=== PATIENT | female | born 1985 | race Caucasian/White ===

== ENCOUNTER 2017-04-16 17:15 | Emergency (ER) | payer OTHER ==
[2017-04-16 17:20] VITALS: RESP 18
[2017-04-16] MEDS ORDERED: ONDANSETRON 4 MG/2 ML VIAL IVP STA (17:55)
[2017-04-16] MEDS ORDERED: SODIUM CHLORIDE 0.9% 1,000 ML IV STA (17:55)
--- NOTE | 2017-04-16 18:01 | ED ---
Nausea/Vomiting/Diarrhea HPI - General Chief complaint: Nausea/Vomiting/Diarrhea Stated complaint: Vomiting Time Seen by Provider: 04/16/17 17:50 Source: patient Mode of arrival: ambulatory Limitations: no limitations - History of Present Illness Initial comments: 31-year-old female patient presents to emergency department today with complaints of vomiting since around 0300 this morning. She states that she has had approximately 8 episodes since this began. She states that whenever she tries to take in any fluids she immediately vomits them back up. She states that she had a fever as well this morning of 102.5. States that she was able to take and keep down some ibuprofen which did break the fever. She denies any abdominal pain, constipation, or diarrhea. States that her last bowel movement was yesterday and it was normal for her. She states that she does have a friend with similar symptoms. Patient denies any shortness breath, chest pain, abdominal pain, nausea, vomiting, diarrhea, constipation, hematemesis, hematochezia, melena, back pain, numbness, tingling, dizziness, weakness, hematuria, dysuria, urinary urgency, urinary frequency, headache, visual changes , or any other complaints. She denies any chance of or any significant past medical history. - Related Data Home Medications Medication Instructions Recorded Confirmed Ibuprofen [Motrin] 200 mg PO Q6HR PRN 04/16/17 04/16/17 Previous Rx's Medication Instructions Recorded Ondansetron [Zofran ODT] 4 mg PO Q8HR #10 tab 04/16/17 Allergies Allergy/AdvReac Type Severity Reaction Status Date / Time No Known Allergies Allergy Verified 04/16/17 18:14 Review of Systems ROS Statement: Those systems with pertinent positive or pertinent negative responses have been documented in the HPI. ROS Other: All systems not noted in ROS Statement are negative. Past Medical History Past Medical History: No Reported History Additional Past Medical History / Comment(s): OCD History of Any Multi-Drug Resistant Organisms: None Reported Past Surgical History: Section, Ear Surgery Past Psychological History: No Psychological Hx Reported Smoking Status: Current every day smoker Past Alcohol Use History: None Reported Past Drug Use History: None Reported General Exam Limitations: no limitations General appearance: alert, in no apparent distress, other (This is a well- developed, well-nourished adult female in no acute distress. Vital signs upon presentation were temperature 97.6F, pulse 101, respirations 18, blood pressure 111/65, pulse ox 100.) ENT exam: Present: normal exam, normal oropharynx, mucous membranes moist Respiratory exam: Present: normal lung sounds bilaterally. Absent: respiratory distress, wheezes, rales, rhonchi, stridor Cardiovascular Exam: Present: regular rate, normal rhythm, normal heart sounds. Absent: systolic murmur, diastolic murmur, rubs, gallop, clicks GI/Abdominal exam: Present: soft, normal bowel sounds. Absent: distended, tenderness, guarding, rebound, rigid Neurological exam: Present: alert, oriented X3, CN II-XII intact Psychiatric exam: Present: normal affect, normal mood Skin exam: Present: warm, dry, intact, normal color. Absent: rash Course Vital Signs 04/16/17 04/16/17 17:17 19:43 Temperature 97.6 F 98.9 F Pulse Rate 101 H 71 Respiratory 18 18 Rate Blood Pressure 111/65 102/58 O2 Sat by Pulse 100 100 Oximetry Medical Decision Making - Medical Decision Making 31-year-old female patient presented for acute nausea and vomiting. Labs were reviewed and were unremarkable. Physical exam was also unremarkable. Patient did receive nausea but indication and fluids here in the department and is feeling much better. Patient has tolerated ice chips. We will give a prescription for Zofran. She is instructed to start with a clear liquid diet and advance as tolerated. She will be discharged home with instructions to follow-up with her primary care physician for recheck in 1-2 days. She is instructed to return here immediately for any new, worsening, or concerning symptoms. Patient verbalizes understanding and agrees with this plan. - Lab Data Result diagrams: 04/16/17 18:20 04/16/17 18:20 Lab Results 04/16/17 04/16/17 04/16/17 Range/Units 18:20 18:20 18:49 WBC 7.8 (3.8-10.6) k/uL RBC 4.43 (3.80-5.40) m/uL Hgb 13.3 (11.4-16.0) gm/dL Hct 40.6 (34.0-46.0) % MCV 91.7 (80.0-100.0) fL MCH 30.0 (25.0-35.0) pg MCHC 32.8 (31.0-37.0) g/dL RDW 13.3 (11.5-15.5) % Plt Count 285 (150-450) k/uL Neutrophils % 69 % Lymphocytes % 19 % Monocytes % 5 % Eosinophils % 5 % Basophils % 1 % Neutrophils # 5.3 (1.3-7.7) k/uL Lymphocytes # 1.5 (1.0-4.8) k/uL Monocytes # 0.4 (0-1.0) k/uL Eosinophils # 0.4 (0-0.7) k/uL Basophils # 0.1 (0-0.2) k/uL Sodium 142 (137-145) mmol/L Potassium 3.7 (3.5-5.1) mmol/L Chloride 110 H (98-107) mmol/L Carbon Dioxide 21 L (22-30) mmol/L Anion Gap 11 mmol/L BUN 9 (7-17) mg/dL Creatinine 0.59 (0.52-1.04) mg/dL Est GFR (MDRD) Af Amer >60 (>60 ml/min/1.73 sqM) Est GFR (MDRD) Non-Af >60 (>60 ml/min/1.73 sqM) Glucose 81 (74-99) mg/dL Calcium 9.3 (8.4-10.2) mg/dL Total Bilirubin 0.3 (0.2-1.3) mg/dL AST 19 (14-36) U/L ALT 27 (9-52) U/L Alkaline Phosphatase 56 (38-126) U/L Total Protein 6.9 (6.3-8.2) g/dL Albumin 4.1 (3.5-5.0) g/dL Amylase 57 (30-110) U/L Lipase 114 (23-300) U/L Urine Color Yellow Urine Appearance Cloudy H (Clear) Urine pH 7.5 (5.0-8.0) Ur Specific Walters 1.009 (1.001-1.035) Urine Protein Negative (Negative) Urine Glucose (UA) Negative (Negative) Urine Ketones Negative (Negative) Urine Blood Moderate H (Negative) Urine Nitrite Negative (Negative) Urine Bilirubin Negative (Negative) Urine Urobilinogen <2.0 (<2.0) mg/dL Ur Leukocyte Esterase Negative (Negative) Urine RBC 2 (0-5) /hpf Urine WBC 1 (0-5) /hpf Ur Squamous Epith Cells 5 H (0-4) /hpf Urine Mucus Rare H (None) /hpf Urine HCG, Qual (Not Detectd) 04/16/17 Range/Units 18:49 WBC (3.8-10.6) k/uL RBC (3.80-5.40) m/uL Hgb (11.4-16.0) gm/dL Hct (34.0-46.0) % MCV (80.0-100.0) fL MCH (25.0-35.0) pg MCHC (31.0-37.0) g/dL RDW (11.5-15.5) % Plt Count (150-450) k/uL Neutrophils % % Lymphocytes % % Monocytes % % Eosinophils % % Basophils % % Neutrophils # (1.3-7.7) k/uL Lymphocytes # (1.0-4.8) k/uL Monocytes # (0-1.0) k/uL Eosinophils # (0-0.7) k/uL Basophils # (0-0.2) k/uL Sodium (137-145) mmol/L Potassium (3.5-5.1) mmol/L Chloride (98-107) mmol/L Carbon Dioxide (22-30) mmol/L Anion Gap mmol/L BUN (7-17) mg/dL Creatinine (0.52-1.04) mg/dL Est GFR (MDRD) Af Amer (>60 ml/min/1.73 sqM) Est GFR (MDRD) Non-Af (>60 ml/min/1.73 sqM) Glucose (74-99) mg/dL Calcium (8.4-10.2) mg/dL Total Bilirubin (0.2-1.3) mg/dL AST (14-36) U/L ALT (9-52) U/L Alkaline Phosphatase (38-126) U/L Total Protein (6.3-8.2) g/dL Albumin (3.5-5.0) g/dL Amylase (30-110) U/L Lipase (23-300) U/L Urine Color Urine Appearance (Clear) Urine pH (5.0-8.0) Ur Specific Walters (1.001-1.035) Urine Protein (Negative) Urine Glucose (UA) (Negative) Urine Ketones (Negative) Urine Blood (Negative) Urine Nitrite (Negative) Urine Bilirubin (Negative) Urine Urobilinogen (<2.0) mg/dL Ur Leukocyte Esterase (Negative) Urine RBC (0-5) /hpf Urine WBC (0-5) /hpf Ur Squamous Epith Cells (0-4) /hpf Urine Mucus (None) /hpf Urine HCG, Qual Not Detected (Not Detectd) Disposition Clinical Impression: Gastroenteritis Disposition: HOME SELF-CARE Condition: Good Instructions: Acute Nausea and Vomiting (ED) Additional Instructions: Rest. Increase fluids. Start with clear liquid diet and advance as tolerated. Follow-up with her primary care physician for recheck in 1-2 days. Return here immediately for any new, worsening, or concerning symptoms. Prescriptions: Ondansetron [Zofran ODT] 4 mg PO Q8HR #10 tab Referrals: Brian Navarro MD [Primary Care Provider] - 1-2 days Time of Disposition: 19:20
[2017-04-16 18:33] LABS: Basophils # (A) 0.1 k/uL (0-0.2); Basophils % (A) 1 %; CH 30.9; CHCM 33.9; Eosinophils # (A) 0.4 k/uL (0-0.7); Eosinophils % (A) 5 %; HCT 40.6 % (34.0-46.0); HGB 13.3 gm/dL (11.4-16.0); Luc % (Auto) 1; Lymphocytes # (A) 1.5 k/uL (1.0-4.8); Lymphocytes % (A) 19 %; MCHC 32.8 g/dL (31.0-37.0); MCV 91.7 fL (80.0-100.0); Mean Platelet Volume 7.1; Monocytes # (A) 0.4 k/uL (0-1.0); Monocytes % (A) 5 %; Neutrophils # (A) 5.3 k/uL (1.3-7.7); Neutrophils % (A) 69 %; RBC 4.43 m/uL (3.80-5.40); RDW 13.3 % (11.5-15.5); WBC 7.8 k/uL (3.8-10.6); WBC (Perox) 8.52
[2017-04-16 18:43] LABS: ALT 27 U/L (9-52); AST 19 U/L (14-36); Alkaline Phosphatase 56 U/L (38-126); Amylase 57 U/L (30-110); Anion Gap 11 mmol/L; Blood Urea Nitrogen 9 mg/dL (7-17); Calcium 9.3 mg/dL (8.4-10.2); Carbon Dioxide 21 mmol/L (22-30); Chloride 110 mmol/L (98-107); Glucose 81 mg/dL (74-99); Non-African American GFR(MDRD) >60 (>60 ml/min/1.73 sqM); Potassium 3.7 mmol/L (3.5-5.1); Sodium 142 mmol/L (137-145); Total Bilirubin 0.3 mg/dL (0.2-1.3); Total Protein 6.9 g/dL (6.3-8.2)
[2017-04-16 19:04] LABS: Appearance,Urine Cloudy (Clear); Bilirubin,Urine Negative (Negative); Glucose,Urine (UA) Negative (Negative); Ketones,Urine Negative (Negative); Leukocyte Esterase,Urine Negative (Negative); Mucus,Urine Rare /hpf; Nitrite,Urine Negative (Negative); PH, Urine 7.5 (5.0-8.0); Particle Count 5960; Protein,Urine Negative (Negative); RBC,Urine 2 /hpf (0-5); Specific Gravity,Urine 1.009 (1.001-1.035); Squamous Epithelial Cell,Urine 5 /hpf (0-4); UA Billing (MACRO vs. MICRO) MICRO; Urobilinogen,Urine <2.0 mg/dL (<2.0); WBC,Urine 1 /hpf (0-5)
[2017-04-16 19:43] VITALS: BP 102/58; PULSE 71; TEMP 98.9
== END 2017-04-16 19:43 | disposition home or self-care (01) ==
LOC: EC 17:15
DX: K52.9 Noninfective gastroenteritis and colitis, unspecified (principal); F17.200 Nicotine dependence, unspecified, uncomplicated
CPT/HCPCS: 99284; 96374; 96361; 36415; 80053; 82150; 83690; 85025; 81001; 81025; J2405

== ENCOUNTER 2022-01-26 14:33 | Emergency (ER) | payer OTHER ==
[2022-01-26 15:08] VITALS: BP 103/72; RESP 16
[2022-01-26] MEDS ORDERED: SODIUM CHLORIDE 0.9% 1,000 ML IV STA (15:48)
[2022-01-26] MEDS ORDERED: DIPH,PERTUS(ACELL)TETVAC-LF 0.5 ML VIAL IM ONE (15:49)
[2022-01-26] MEDS ORDERED: ACETAMINOPHEN TAB 325 MG TAB PO STA (15:50)
--- NOTE | 2022-01-26 15:55 | ED ---
General Adult HPI - General Chief complaint: Head Injury Stated complaint: Fall-Dizzness,weakness Time Seen by Provider: 01/26/22 15:40 Source: patient, family, RN notes reviewed, old records reviewed Mode of arrival: ambulatory Limitations: no limitations - History of Present Illness Initial comments: This is a well-appearing 36-year-old female who presents to the emergency room with complaints of having a syncopal episode this morning at 3:00 when she got up to go to the bathroom. Patient states that she woke up on the floor with her Croatian mak licking her. Patient states that she has had a fever of 101 since Thursday. She states that she did take two home covid tests that were negative. Patient is a half a pack a day smoker, occasional marijuana, no other medical history. -: hour(s) (12) Location: head Severity scale (1-10): 7 Quality: aching Consistency: constant Associated Symptoms: fever/chills - Related Data Home Medications Medication Instructions Recorded Confirmed Ibuprofen [Motrin] 200 mg PO Q6HR PRN 04/16/17 04/16/17 Previous Rx's Medication Instructions Recorded Ondansetron [Zofran ODT] 4 mg PO Q8HR #10 tab 04/16/17 Cephalexin [Keflex] 500 mg PO BID 7 Days #14 cap 01/26/22 Allergies Allergy/AdvReac Type Severity Reaction Status Date / Time No Known Allergies Allergy Verified 01/26/22 15:08 Review of Systems ROS Statement: Those systems with pertinent positive or pertinent negative responses have been documented in the HPI. ROS Other: All systems not noted in ROS Statement are negative. Past Medical History Past Medical History: No Reported History Additional Past Medical History / Comment(s): OCD History of Any Multi-Drug Resistant Organisms: None Reported Past Surgical History: Section, Ear Surgery Past Psychological History: No Psychological Hx Reported Smoking Status: Current every day smoker Past Alcohol Use History: None Reported Past Drug Use History: None Reported General Exam Limitations: no limitations General appearance: alert, in no apparent distress Head exam: Present: normocephalic, other (There is approximately 3 cm laceration to the occiput no active bleeding) Eye exam: Present: normal appearance, EOMI. Absent: scleral icterus, conjunctival injection, periorbital swelling, periorbital tenderness ENT exam: Present: mucous membranes moist, other (Erythematous oropharynx, no evidence of exudate or peritonsillar abscess) Neck exam: Present: normal inspection, full ROM. Absent: tenderness, meningismus, lymphadenopathy Respiratory exam: Present: normal lung sounds bilaterally. Absent: respiratory distress, accessory muscle use Cardiovascular Exam: Present: regular rate GI/Abdominal exam: Present: soft. Absent: distended, tenderness, rigid Extremities exam: Present: normal inspection, full ROM, normal capillary refill. Absent: tenderness, pedal edema Back exam: Present: normal inspection, full ROM. Absent: tenderness, CVA te nderness (R), CVA tenderness (L), rash noted Neurological exam: Present: alert, oriented X3, CN II-XII intact Psychiatric exam: Present: normal affect, normal mood Skin exam: Present: warm, dry, abrasion (right elbow), other (laceration occiput ) Course Vital Signs 01/26/22 15:05 Temperature 98.6 F Pulse Rate 85 Respiratory 16 Rate Blood Pressure 103/72 O2 Sat by Pulse 97 Oximetry EKG Findings - EKG Results: EKG: sinus rhythm (Ventricular rate 75, P Adolfo 0.106, QRS 0.73, QTC 0.410, normal axis) Procedures - Laceration Laceration #1 Consent Obtained: verbal consent Indication: laceration Site: scalp Description: linear Depth: simple, single layer Anesthetic Used: lidocaine 1% Anesthesia Technique: local infiltration Pre-repair: irrigated extensively Type of Sutures: other (ean) Size of Sutures: other (aen) Number of Sutures: 3 Patient Tolerated Procedure: well, no complications Medical Decision Making - Medical Decision Making 36-year-old female presents after syncopal episode this morning at 3 AM. She did hit her head on the floor. She did sustain a 3 cm laceration to the occiput. She has had a fever and headache since Thursday intermittently. Patient has no focal neurological deficits. EKG shows sinus rhythm with no ST elevation. Electrolytes are unremarkable. Patient is coronavirus positive and has a urinary tract infection. She will be treated for UTI and for Covid positive status was directed to self quarantine for 10 days from symptom onset. Wound was closed with 3 ean after irrigation. Ean to be removed in 5-7 days by her primary care doctor. She was directed to return to emergency room if any new or concerning symptoms including persistent nausea vomiting. Patient and family are agreeable to this plan of care. Case discussed with Dr. Pena - Lab Data Result diagrams: 01/26/22 16:00 01/26/22 16:00 Lab Results 01/26/22 01/26/22 01/26/22 Range/Units 16:00 16:00 16:00 WBC 3.7 L (3.8-10.6) k/uL RBC 4.47 (3.80-5.40) m/uL Hgb 13.6 (11.4-16.0) gm/dL Hct 40.0 (34.0-46.0) % MCV 89.4 (80.0-100.0) fL MCH 30.3 (25.0-35.0) pg MCHC 33.9 (31.0-37.0) g/dL RDW 12.8 (11.5-15.5) % Plt Count 174 (150-450) k/uL MPV 7.1 Neutrophils % (Manual) 28 % Band Neuts % (Manual) 2 % Lymphocytes % (Manual) 58 % Monocytes % (Manual) 12 % Neutrophils # (Manual) 1.10 L (1.3-7.7) k/uL Lymphocytes # (Manual) 2.15 (1.0-4.8) k/uL Monocytes # (Manual) 0.44 (0-1.0) k/uL Nucleated RBCs 0 (0-0) /100 WBC Manual Slide Review Performed Reactive Lymphocytes Present Sodium 136 L (137-145) mmol/L Potassium 3.8 (3.5-5.1) mmol/L Chloride 107 (98-107) mmol/L Carbon Dioxide 20 L (22-30) mmol/L Anion Gap 9 mmol/L BUN 8 (7-17) mg/dL Creatinine 0.63 (0.52-1.04) mg/dL Est GFR (CKD-EPI)AfAm >90 (>60 ml/min/1.73 sqM) Est GFR (CKD-EPI)NonAf >90 (>60 ml/min/1.73 sqM) Glucose 79 (74-99) mg/dL Calcium 8.6 (8.4-10.2) mg/dL Magnesium 2.2 (1.6-2.3) mg/dL Total Bilirubin 0.3 (0.2-1.3) mg/dL AST 33 (14-36) U/L ALT 17 (4-34) U/L Alkaline Phosphatase 49 (38-126) U/L Troponin I (0.000-0.034) ng/mL Total Protein 7.3 (6.3-8.2) g/dL Albumin 4.4 (3.5-5.0) g/dL Urine Color Yellow Urine Appearance Cloudy H (Clear) Urine pH 5.5 (5.0-8.0) Ur Specific Pfeifer 1.012 (1.001-1.035) Urine Protein Trace H (Negative) Urine Glucose (UA) Negative (Negative) Urine Ketones Negative (Negative) Urine Blood Small H (Negative) Urine Nitrite Positive H (Negative) Urine Bilirubin Negative (Negative) Urine Urobilinogen <2.0 (<2.0) mg/dL Ur Leukocyte Esterase Small H (Negative) Urine RBC 2 (0-5) /hpf Urine WBC 26 H (0-5) /hpf Ur Squamous Epith Cells 10 H (0-4) /hpf Amorphous Sediment Rare H (None) /hpf Urine Bacteria Few H (None) /hpf Urine Mucus Many H (None) /hpf Urine HCG, Qual (Not Detectd) Coronavirus (PCR) (Not Detectd) Influenza Type A RNA (Not Detectd) Influenza Type B (PCR) (Not Detectd) 01/26/22 01/26/22 01/26/22 Range/Units 16:00 16:00 16:00 WBC (3.8-10.6) k/uL RBC (3.80-5.40) m/uL Hgb (11.4-16.0) gm/dL Hct (34.0-46.0) % MCV (80.0-100.0) fL MCH (25.0-35.0) pg MCHC (31.0-37.0) g/dL RDW (11.5-15.5) % Plt Count (150-450) k/uL MPV Neutrophils % (Manual) % Band Neuts % (Manual) % Lymphocytes % (Manual) % Monocytes % (Manual) % Neutrophils # (Manual) (1.3-7.7) k/uL Lymphocytes # (Manual) (1.0-4.8) k/uL Monocytes # (Manual) (0-1.0) k/uL Nucleated RBCs (0-0) /100 WBC Manual Slide Review Reactive Lymphocytes Sodium (137-145) mmol/L Potassium (3.5-5.1) mmol/L Chloride (98-107) mmol/L Carbon Dioxide (22-30) mmol/L Anion Gap mmol/L BUN (7-17) mg/dL Creatinine (0.52-1.04) mg/dL Est GFR (CKD-EPI)AfAm (>60 ml/min/1.73 sqM) Est GFR (CKD-EPI)NonAf (>60 ml/min/1.73 sqM) Glucose (74-99) mg/dL Calcium (8.4-10.2) mg/dL Magnesium (1.6-2.3) mg/dL Total Bilirubin (0.2-1.3) mg/dL AST (14-36) U/L ALT (4-34) U/L Alkaline Phosphatase (38-126) U/L Troponin I <0.012 (0.000-0.034) ng/mL Total Protein (6.3-8.2) g/dL Albumin (3.5-5.0) g/dL Urine Color Urine Appearance (Clear) Urine pH (5.0-8.0) Ur Specific Pfeifer (1.001-1.035) Urine Protein (Negative) Urine Glucose (UA) (Negative) Urine Ketones (Negative) Urine Blood (Negative) Urine Nitrite (Negative) Urine Bilirubin (Negative) Urine Urobilinogen (<2.0) mg/dL Ur Leukocyte Esterase (Negative) Urine RBC (0-5) /hpf Urine WBC (0-5) /hpf Ur Squamous Epith Cells (0-4) /hpf Amorphous Sediment (None) /hpf Urine Bacteria (None) /hpf Urine Mucus (None) /hpf Urine HCG, Qual Not Detected (Not Detectd) Coronavirus (PCR) Detected A (Not Detectd) Influenza Type A RNA (Not Detectd) Influenza Type B (PCR) (Not Detectd) 01/26/22 Range/Units 16:00 WBC (3.8-10.6) k/uL RBC (3.80-5.40) m/uL Hgb (11.4-16.0) gm/dL Hct (34.0-46.0) % MCV (80.0-100.0) fL MCH (25.0-35.0) pg MCHC (31.0-37.0) g/dL RDW (11.5-15.5) % Plt Count (150-450) k/uL MPV Neutrophils % (Manual) % Band Neuts % (Manual) % Lymphocytes % (Manual) % Monocytes % (Manual) % Neutrophils # (Manual) (1.3-7.7) k/uL Lymphocytes # (Manual) (1.0-4.8) k/uL Monocytes # (Manual) (0-1.0) k/uL Nucleated RBCs (0-0) /100 WBC Manual Slide Review Reactive Lymphocytes Sodium (137-145) mmol/L Potassium (3.5-5.1) mmol/L Chloride (98-107) mmol/L Carbon Dioxide (22-30) mmol/L Anion Gap mmol/L BUN (7-17) mg/dL Creatinine (0.52-1.04) mg/dL Est GFR (CKD-EPI)AfAm (>60 ml/min/1.73 sqM) Est GFR (CKD-EPI)NonAf (>60 ml/min/1.73 sqM) Glucose (74-99) mg/dL Calcium (8.4-10.2) mg/dL Magnesium (1.6-2.3) mg/dL Total Bilirubin (0.2-1.3) mg/dL AST (14-36) U/L ALT (4-34) U/L Alkaline Phosphatase (38-126) U/L Troponin I (0.000-0.034) ng/mL Total Protein (6.3-8.2) g/dL Albumin (3.5-5.0) g/dL Urine Color Urine Appearance (Clear) Urine pH (5.0-8.0) Ur Specific Pfeifer (1.001-1.035) Urine Protein (Negative) Urine Glucose (UA) (Negative) Urine Ketones (Negative) Urine Blood (Negative) Urine Nitrite (Negative) Urine Bilirubin (Negative) Urine Urobilinogen (<2.0) mg/dL Ur Leukocyte Esterase (Negative) Urine RBC (0-5) /hpf Urine WBC (0-5) /hpf Ur Squamous Epith Cells (0-4) /hpf Amorphous Sediment (None) /hpf Urine Bacteria (None) /hpf Urine Mucus (None) /hpf Urine HCG, Qual (Not Detectd) Coronavirus (PCR) (Not Detectd) Influenza Type A RNA Not Detected (Not Detectd) Influenza Type B (PCR) Not Detected (Not Detectd) Disposition Clinical Impression: UTI (urinary tract infection), Syncope, COVID-19 Disposition: HOME SELF-CARE Condition: Good Instructions (If sedation given, give patient instructions): Urinary Tract Infection in Women (ED), Syncope (ED), COVID-19 (Coronavirus Disease 2019) (ED) Additional Instructions: Take antibiotics as prescribed for urinary tract infection. Increase her fluid intake. Clymer to be removed in 5 -7 days. Self quarantine for 10 days from symptom onset. If after 5 days you have no symptoms you can go into public with just a mask. Take vitamin C, vitamin D and zinc to improve immune health. Tylenol and or Motrin as needed for fevers or body aches. Follow-up with the primary care doctor next week. Prescriptions: Cephalexin [Keflex] 500 mg PO BID 7 Days #14 cap Is patient prescribed a controlled substance at d/c from ED?: No Referrals: None,Stated [Primary Care Provider] - 1-2 days Time of Disposition: 17:42
[2022-01-26 16:34] LABS: Amorphous Sediment,Urine Rare /hpf; Appearance,Urine Cloudy (Clear); Bacteria,Urine Few /hpf; Bilirubin,Urine Negative (Negative); Blood,Urine Small (Negative); Color,Urine Yellow; Glucose,Urine (UA) Negative (Negative); Ketones,Urine Negative (Negative); Leukocyte Esterase,Urine Small (Negative); Mucus,Urine Many /hpf; Nitrite,Urine Positive (Negative); PH, Urine 5.5 (5.0-8.0); Protein,Urine Trace (Negative); RBC,Urine 2 /hpf (0-5); Specific Gravity,Urine 1.012 (1.001-1.035); Squamous Epithelial Cell,Urine 10 /hpf (0-4); Urobilinogen,Urine <2.0 mg/dL (<2.0); WBC,Urine 26 /hpf (0-5)
[2022-01-26 16:45] LABS: HGB 13.6 gm/dL (11.4-16.0); MCH 30.3 pg (25.0-35.0); MCHC 33.9 g/dL (31.0-37.0); MCV 89.4 fL (80.0-100.0); Mean Platelet Volume 7.1; Platelet Count 174 k/uL (150-450); RBC 4.47 m/uL (3.80-5.40); RDW 12.8 % (11.5-15.5); WBC 3.7 k/uL (3.8-10.6)
[2022-01-26 16:56] LABS: ALT 17 U/L (4-34); AST 33 U/L (14-36); African American GFR (CKD) >90 (>60 ml/min/1.73 sqM); Albumin 4.4 g/dL (3.5-5.0); Alkaline Phosphatase 49 U/L (38-126); Anion Gap 9 mmol/L; Blood Urea Nitrogen 8 mg/dL (7-17); Calcium 8.6 mg/dL (8.4-10.2); Carbon Dioxide 20 mmol/L (22-30); Chloride 107 mmol/L (98-107); Glucose 79 mg/dL (74-99); Magnesium 2.2 mg/dL (1.6-2.3); Non-African American GFR(CKD) >90 (>60 ml/min/1.73 sqM); Potassium 3.8 mmol/L (3.5-5.1); Sodium 136 mmol/L (137-145); Total Bilirubin 0.3 mg/dL (0.2-1.3); Total Protein 7.3 g/dL (6.3-8.2)
[2022-01-26 17:05] LABS: Band Neutrophils % 2 %; Lymphocytes # (M) 2.15 k/uL (1.0-4.8); Monocytes # (M) 0.44 k/uL (0-1.0); Neutrophils % (M) 28 %; Nucleated Red Blood Cells 0 /100 WBC (0-0); Reactive Lymphocytes Present; Total Cells Counted 100
[2022-01-26] MEDS ORDERED: LIDOCAINE 1% INJ 10MG/ML (5 ML VIAL-PF) SQ ONE (17:29)
[2022-01-26 18:08] VITALS: PULSE 75; TEMP 97.9
--- NOTE | 2022-01-26 18:26 | XR ---
EXAMINATION TYPE: XR chest 2V DATE OF EXAM: 01/26/2022 COMPARISON: NONE HISTORY: Fever and dizziness TECHNIQUE: 2 views FINDINGS: Heart and mediastinum are normal. Lungs are clear. Diaphragm is normal. Bony thorax is inta ct IMPRESSION: Normal chest
== END 2022-01-26 18:11 | disposition home or self-care (01) ==
LOC: EC 14:33
DX: S01.01XA Laceration without foreign body of scalp, initial encounter (principal); R55 Syncope and collapse; U07.1 COVID-19; N39.0 Urinary tract infection, site not specified; Z23 Encounter for immunization; F17.200 Nicotine dependence, unspecified, uncomplicated; W19.XXXA Unspecified fall, initial encounter
CPT/HCPCS: 36415; 93005; 80053; 83735; 84484; 85025; 81001; 81025; 87086; 87077; 87186; 87502; 87635; 71046; 90715; 99284; 96360; 90471; 12002; J2001